=== PATIENT | male | born 1980 | race Caucasian/White ===

== ENCOUNTER 2016-11-20 12:46 | Emergency (ER) | payer SELFPAY ==
[~2016-11-20] VITALS: Ht 170.2 cm; Wt 95.7 kg
[2016-11-20 16:49] VITALS: BP 151/93
== END 2016-11-20 16:49 | disposition home or self-care (01) ==
LOC: ED 12:46
DX: G44.209 Tension-type headache, unspecified, not intractable (principal); R07.89 Other chest pain

== ENCOUNTER 2018-06-04 01:01 | Emergency (ER) | payer MEDICAID ==
[~2018-06-04] VITALS: Ht 167.6 cm; Wt 100.2 kg
[2018-06-04 01:03] VITALS: Ht 167.6 cm; Wt 100.2 kg
[2018-06-04 01:25] LABS: BASOPHIL % 0.6 % (0-2); PLATELET COUNT 183 x10^3mcL (130-400); RED CELL DISTRIBUTION WIDTH 13.1 % (11.5-14.5)
[2018-06-04 01:33] LABS: CARBON DIOXIDE 27.2 mmol/L (21-32); CHLORIDE SERUM 101 mmol/L (98-107); CREATININE SERUM 0.7 mg/dL (0.7-1.3); GFR1 > 60 mL/min; GLUCOSE SERUM 109 mg/dL (74-106); POTASSIUM SERUM 4.2 mmol/L (3.5-5.1); SODIUM SERUM 137 mmol/L (136-145)
[2018-06-04 01:38] LABS: ALBUMIN 3.8 g/dL (3.4-5.0); ALKALINE PHOSPHATASE 133 U/L (46-116); ALT/SGPT 71 U/L (16-63); AST/SGOT 25 U/L (15-37); BILIRUBIN TOTAL 0.25 mg/dL (0.20-1.00); TOTAL PROTEIN, SERUM 7.9 g/dL (6.4-8.2)
[2018-06-04 02:09] VITALS: BP 139/89
== END 2018-06-04 02:09 | disposition home or self-care (01) ==
LOC: ED 01:01
PROVIDERS: Emergency Medicine
DX: R07.89 Other chest pain (principal); M79.602 Pain in left arm; R11.0 Nausea
CPT/HCPCS: 85378; J1885; Q0092

== ENCOUNTER 2020-01-27 20:39 | Emergency (ER) | payer SELFPAY ==
[~2020-01-27] VITALS: Ht 167.6 cm; Wt 96.2 kg
[2020-01-27 20:44] VITALS: Ht 167.6 cm; Wt 96.2 kg
[2020-01-28 04:18] VITALS: BP 127/88
== END 2020-01-28 04:10 | disposition home or self-care (01) ==
LOC: ED 20:39
DX: U07.1 COVID-19 (principal); B34.9 Viral infection, unspecified
CPT/HCPCS: 87804; J1885; Q0092; U0003-CS

== ENCOUNTER 2020-01-31 10:35 | Emergency (ER) | payer SELFPAY ==
[~2020-01-31] VITALS: Ht 167.6 cm; Wt 63.5 kg
[2020-01-31 11:12] VITALS: BP 139/83; Ht 167.6 cm; Wt 63.5 kg
== END 2020-01-31 11:55 | disposition home or self-care (01) ==
LOC: ED 10:35
DX: M54.9 Dorsalgia, unspecified (principal); R09.89 Other specified symptoms and signs involving the circulatory and respiratory systems; R50.9 Fever, unspecified; R05 Cough; R06.02 Shortness of breath